=== PATIENT | male | born 1995 | race Caucasian/White ===

== ENCOUNTER 2019-11-01 15:16 | Emergency (ER) | payer SELFPAY ==
[~2019-11-01] VITALS: Ht 170.2 cm; Wt 145.6 kg
[2019-11-01 15:27] VITALS: Ht 170.2 cm; Wt 145.6 kg
[2019-11-01 15:54] LABS: BASOPHIL % 0.4 % (0-2); PLATELET COUNT 132 x10^3mcL (130-400); RED CELL DISTRIBUTION WIDTH 13.2 % (11.5-14.5)
[2019-11-01 16:15] LABS: CALCIUM 8.7 mg/dL (8.5-10.1); CARBON DIOXIDE 25.6 mmol/L (21-32); CHLORIDE SERUM 103 mmol/L (98-107); GFR1 > 60 mL/min; GLUCOSE SERUM 305 mg/dL (74-106); SODIUM SERUM 140 mmol/L (136-145)
[2019-11-01 16:19] LABS: ALBUMIN 4.1 g/dL (3.4-5.0); ALKALINE PHOSPHATASE 106 U/L (46-116); ALT/SGPT 576 U/L (16-63); AST/SGOT 191 U/L (15-37); BILIRUBIN TOTAL 1.6 mg/dL (0.20-1.00); TOTAL PROTEIN, SERUM 7.8 g/dL (6.4-8.2)
[2019-11-01 21:00] VITALS: BP 123/77
== END 2019-11-01 21:00 | disposition home or self-care (01) ==
LOC: ED 15:16
PROVIDERS: Emergency Medicine
DX: R07.89 Other chest pain (principal); R10.13 Epigastric pain; R50.9 Fever, unspecified; R63.0 Anorexia; Z20.828 Contact with and (suspected) exposure to other viral communicable diseases
CPT/HCPCS: J7030; Q0092; U0003-CS